=== PATIENT | male | born 1985 | race Asian ===

== ENCOUNTER 2018-01-05 09:07 | Outpatient (CLI) | payer BC ==
--- NOTE | 2018-01-05 16:02 | MRI ---
MRI BRAIN 01/05/18 HISTORY: Paresthesia, right sided arm numbness and heaviness since August. R20.2. Multiplanar and multisequence pre and postcontrast enhanced MRI images of the brain obtained. Pre and postcontrast enhanced MRI images of the brain demonstrate the brain to be unremarkable. No ev idence of intracranial masses, hemorrhages, strokes or contusions seen. Ventricles are of normal size . Normal flow voids seen in the major intracranial vessels. No significant evidence of areas of intra cranial enhancement seen. No other significant abnormalities noted. IMPRESSION: Unremarkable pre and postcontrast enhanced MRI images of the brain. POS: [facility]
== END 2018-01-05 09:08 | disposition home or self-care (01) ==
LOC: SCSMRI 09:07
PROVIDERS: ATTEND Psychiatry & Neurology Neurology
DX: R20.2 Paresthesia of skin (principal)
CPT/HCPCS: 70553